=== PATIENT | male | born 1965 | race Caucasian/White ===

== ENCOUNTER 2024-06-14 20:09 | Emergency (ER) | payer SELFPAY ==
[~2024-06-14] VITALS: Ht 157.5 cm; Wt 94.8 kg
[2024-06-14 20:26] VITALS: BP 124/92; PULSE 106; RESP 18; TEMP 98.2; O2SAT 96
[2024-06-14] MEDS: KETOROLAC 60 MG/2 ML VIAL IM ONE (21:11)
[2024-06-14 21:15] LABS: BASOPHILS % (AUTO) 0.8 % (0.0-2.0); EOSINOPHILS # (AUTO) 0.1 K/uL (0-0.4); HEMATOCRIT 40.4 % (36-52); HEMOGLOBIN 13.8 g/dL (12.0-18.0); LYMPHOCYTES # (AUTO) 1.9 K/uL (2.0-11.5); LYMPHOCYTES % (AUTO) 32.5 % (20.5-51.1); MEAN CORPUSCULAR HEMOGLOBIN 31 pg (27-31); MEAN CORPUSCULAR HGB CONC 34 g/dL (33-37); MEAN CORPUSCULAR VOLUME 89.3 fL (80-94); MONOCYTES # (AUTO) 0.5 K/uL (0.8-1.0); MONOCYTES % (AUTO) 7.9 % (1.7-9.3); NEUTROPHILS # (AUTO) 3.3 K/uL (1.8-7.7); NEUTROPHILS % (AUTO) 56.8 % (42.2-75.2); PLATELET COUNT (AUTO) 239 K/uL (140-450); RED BLOOD CELL COUNT(AUTO) 4.52 MIL/uL (4.20-6.10); RED CELL DISTRIBUTION WIDTH 14.7 % (11.6-13.7); WHITE BLOOD COUNT (AUTO) 5.8 K/uL (4.8-10.8)
[2024-06-14 21:30] LABS: INR 0.94 (0.8-1.2); PARTIAL THROMBOPLASTIN TIME 25.3 secs (22-35.6); PROTHROMBIN TIME 9.9 secs (10.8-13.4)
[2024-06-14 21:31] LABS: ALBUMIN 3.6 g/dL (3.4-5.0); ANION GAP 10.1 (8-16); CALCIUM 8.8 mg/dL (8.5-10.1); CARBON DIOXIDE 28.6 mmol/L (21-32); CREATININE 1.1 mg/dL (0.6-1.3); POTASSIUM 3.7 mmol/L (3.5-5.1); TOTAL BILIRUBIN 0.5 mg/dL (0.0-1.0); TOTAL PROTEIN, SERUM 6.8 g/dL (6.4-8.2)
[2024-06-14] MEDS ORDERED: MORPHINE SULFATE 2 MG/ML SYR ONE (22:57)
[2024-06-14] MEDS: MORPHINE SULFATE 4 MG/ML SYR IVP ONE (22:57)
[2024-06-15] MEDS: MORPHINE SULFATE 4 MG/ML SYR IVP ONE (03:07)
[2024-06-15 03:30] VITALS: BP 118/68; PULSE 82; RESP 17; TEMP 98.2; O2SAT 97
== END 2024-06-15 03:20 | disposition home or self-care (01) ==
LOC: MED 20:09
DX: I82.812 Embolism and thrombosis of superficial veins of left lower extremity (principal)
CPT/HCPCS: 36415; 80053; 85025; 85610; 85730; 93971; 96372; 96374; 96376; 99285; J1885; J2270; Q0092